=== PATIENT | female | born 1975 | race Two or more races ===

== ENCOUNTER 2017-11-16 13:19 | Outpatient (CLI) | payer OTHER | END 2017-11-16 13:39 | disposition home or self-care (01) | LOC: MAMO-SONO 13:19 | DX: Z12.31 Encounter for screening mammogram for malignant neoplasm of breast (principal); C50.911 Malignant neoplasm of unspecified site of right female breast; C50.912 Malignant neoplasm of unspecified site of left female breast ==

== ENCOUNTER → 2018-11-18 | Outpatient (CLI) | payer OTHER | END | disposition home or self-care (01) | LOC: MAMO-SONO 10:15 | DX: Z12.31 Encounter for screening mammogram for malignant neoplasm of breast (principal); N60.21 Fibroadenosis of right breast; N60.22 Fibroadenosis of left breast; D24.9 Benign neoplasm of unspecified breast; R10.2 Pelvic and perineal pain ==

== ENCOUNTER 2019-12-14 14:12 | Outpatient (CLI) | payer OTHER | END 2019-12-14 14:53 | disposition home or self-care (01) | LOC: MAMO-SONO 14:12 | DX: N60.01 Solitary cyst of right breast (principal); N60.02 Solitary cyst of left breast; Z12.31 Encounter for screening mammogram for malignant neoplasm of breast; Z87.898 Personal history of other specified conditions ==